=== PATIENT | female | born 1960 | race Caucasian/White ===

== ENCOUNTER 2018-04-10 17:16 | Inpatient (IN) ==
[2018-04-10] MEDS ORDERED: cefTRIAXone 1,000 MG in SODIUM CHLORIDE 0.9% 100 ML IV STA (18:34)
[2018-04-10] MEDS ORDERED: SODIUM CHLORIDE 0.9% 1,000 ML IV STA (18:34)
[2018-04-10] MEDS ORDERED: ACETAMINOPHEN 500 MG TABLET PO STA (18:34)
[2018-04-10 18:45] LABS: Basophils % 0.3 % (0.0-0.8); Eosinophils % 0.7 % (0.00-10.9); Hematocrit 30.2 VOL% (35.7-47.0); Hemoglobin 9.8 GM/DL (12.0-16.0); Immature Granulocytes % 0.7 %; Immature Granulocytes Absolute 0.02 #; Lymphocytes # 0.2 10*3/uL (1.4-4.0); Mean Corpuscular HGB Conc 32.5 GM/DL (32-36); Mean Corpuscular Hemoglobin 32 PG (27-34); Mean Corpuscular Volume 99.3 FL (87-102); Mean Platelet Volume 11.7 FL (9.6-12.0); Monocytes # 0.2 10*3/uL (0.11-0.8); Monocytes % 5.6 % (1.7-12.7); Neutrophils # 2.6 10*3/uL (1.4-7.4); Neutrophils % 86.7 % (38.7-73.9); Platelet Count 61 T/CUMM (130-400); Red Blood Count 3.04 MC/CUMM (3.8-5.5); Red Cell Distribution Width 17.5 % (9.3-17.3)
[2018-04-10 18:52] LABS: INR 1.3; PT Patient Result 13.3 SECS
[2018-04-10 18:58] LABS: Alanine Aminotransferase 15 U/L (13-56); Albumin 1.4 G/DL (3.4-5.0); Alkaline Phosphatase 42 U/L (45-117); Amylase 21 U/L (25-115); Aspartate Amino Transferase 25 U/L (0-37); Bilirubin,Total < 0.39 MG/DL (0.2-1.0); Blood Urea Nitrogen 17 MG/DL (7-18); Calcium 8.7 MG/DL (8.5-10.1); Glucose 96 MG/DL (74-106); Osmolality,Calculated 269.2 MOS/KG (273-304); Potassium 3.6 MMOL/L (3.5-5.1); Sodium 134 MMOL/L (136-145); Total Protein 11.3 G/DL (6.4-8.3)
[2018-04-10 19:29] LABS: Lactic Acid 1.3 MMOL/L (0.4-2.0)
[2018-04-10 19:37] LABS: Apearance,Urine CLOUDY (Clear); Bilirubin,Urine Negative (Negative); Blood, Urine Large mg/dL (Negative); Glucose,Urine (UA) Negative (Negative); Hyaline Casts,Urine 18 /LPF (0-3); Ketones,Urine Negative (Negative); Mucus,Urine Few /LPF (Occasional); Nitrite,Urine Negative (Negative); Protein,Urine >=500 MG/DL; RBC,Urine 6 /HPF (0-4); Squamous Epithelial Cell,Urine Occasional /HPF (0-10); Urine Color Yellow (Yellow); Urine Specific Gravity 1.016 (1.001-1.035); Urine Urobilinogen < 2.0 EU/DL (0.2-1.0); WBC,Urine 3 /HPF (0-6)
[2018-04-10] MEDS ORDERED: ONDANSETRON 4 MG/2 ML VIAL IV STA (20:02)
[2018-04-10] MEDS ORDERED: HYDROmorphone 2 MG/1 ML VIAL IV ONE (20:02)
[2018-04-10 20:04] LABS: Hypochromasia 1+; Platelet Estimate Decreased
[2018-04-10 20:06] LABS: Rouleau 3+
[2018-04-10 20:57] LABS: Sedimentation Rate-Westergren 7 MM/HR (0-30)
[2018-04-10] MEDS ORDERED: ENOXAPARIN 30 MG/0.3 ML SYRINGE SUBCUT SCH (21:30)
[2018-04-10] MEDS: SODIUM CHLORIDE 0.45% 1,000 ML IV SCH (22:38)
[2018-04-10] MEDS: VANCOMYCIN INJ 1,000 MG in SODIUM CHLORIDE 0.9% 250 ML IV SCH (23:10)
[2018-04-11] MEDS: MORPHINE 4 MG/1 ML VIAL IV PRN ×3 (00:57→16:13)
[2018-04-11] MEDS: PIPERACILLIN/TAZOBACTAM 3,375 MG in SODIUM CHLORIDE 0.9% 100 ML IV SCH ×2 (01:03→09:05)
[2018-04-11] MEDS: ACETAMINOPHEN 325 MG TABLET PO PRN ×2 (03:33→06:24)
[2018-04-11 04:47] LABS: Basophils % 0.4 % (0.0-0.8); Eosinophils % 1.1 % (0.00-10.9); Hematocrit 26.1 VOL% (35.7-47.0); Hemoglobin 8.6 GM/DL (12.0-16.0); Immature Granulocytes % 1.1 %; Immature Granulocytes Absolute 0.03 #; Lymphocytes # 0.2 10*3/uL (1.4-4.0); Mean Corpuscular Hemoglobin 32 PG (27-34); Mean Corpuscular Volume 97.8 FL (87-102); Monocytes # 0.2 10*3/uL (0.11-0.8); Monocytes % 7.6 % (1.7-12.7); Neutrophils # 2.1 10*3/uL (1.4-7.4); Neutrophils % 81.8 % (38.7-73.9); Red Blood Count 2.67 MC/CUMM (3.8-5.5); Red Cell Distribution Width 17.6 % (9.3-17.3); White Blood Count 2.6 T/CUMM (4-12)
[2018-04-11 04:50] LABS: Platelet Count 49 T/CUMM (130-400)
[2018-04-11 05:18] LABS: Calcium 7.9 MG/DL (8.5-10.1); Osmolality,Calculated 272.8 MOS/KG (273-304); Potassium 3.6 MMOL/L (3.5-5.1)
[2018-04-11] MEDS: SODIUM CHLORIDE 0.9% 1,000 ML IV SCH ×2 (07:45→12:00)
[2018-04-11] MEDS: PREGABALIN 50 MG CAPSULE PO SCH ×2 (09:02→21:11)
[2018-04-11] MEDS: FAMOTIDINE 20 MG TABLET PO SCH ×2 (09:02→21:11)
[2018-04-11] MEDS: SODIUM CHLORIDE 0.45% 1,000 ML IV SCH ×2 (12:12→16:09)
[2018-04-11] MEDS: MEROPENEM 1,000 MG in SODIUM CHLORIDE 0.9% 100 ML IV SCH ×2 (13:11→21:08)
[2018-04-11] MEDS: FILGRASTIM-SNDZ 300 MCG/0.5 ML SYRINGE SUBCUT SCH (13:12)
[2018-04-11] MEDS: VANCOMYCIN INJ 1,000 MG in SODIUM CHLORIDE 0.9% 250 ML IV SCH (22:25)
[2018-04-12] MEDS: SODIUM CHLORIDE 0.45% 1,000 ML IV SCH ×4 (01:53→20:56)
[2018-04-12] MEDS: MEROPENEM 1,000 MG in SODIUM CHLORIDE 0.9% 100 ML IV SCH ×3 (04:28→20:50)
[2018-04-12 06:32] LABS: Basophils % 0.1 % (0.0-0.8); Eosinophils # 0.2 10*3/uL (0.0-0.87); Immature Granulocytes % 1.6 %; Immature Granulocytes Absolute 0.13 #; Lymphocytes # 0.3 10*3/uL (1.4-4.0); Lymphocytes % 3.3 % (21.3-54.2); Mean Corpuscular HGB Conc 32.1 GM/DL (32-36); Mean Corpuscular Hemoglobin 32 PG (27-34); Mean Corpuscular Volume 99.3 FL (87-102); Mean Platelet Volume 11.3 FL (9.6-12.0); Monocytes # 0.2 10*3/uL (0.11-0.8); Monocytes % 2.1 % (1.7-12.7); Neutrophils # 7.2 10*3/uL (1.4-7.4); Neutrophils % 90.9 % (38.7-73.9); Red Blood Count 2.82 MC/CUMM (3.8-5.5); Red Cell Distribution Width 17.6 % (9.3-17.3); White Blood Count 7.9 T/CUMM (4-12)
[2018-04-12 06:39] LABS: Platelet Count 36 T/CUMM (130-400)
[2018-04-12 06:58] LABS: Band Neutrophils 15 % (0-10); Eosinophils 1 % (0-10); Lymphocytes 3 % (20-55); Segmented Neutrophils 80 % (50-85); Total Cells Counted 100
[2018-04-12 06:59] LABS: Hypochromasia 1+; Platelet Estimate Decreased
[2018-04-12 07:01] LABS: Rouleau 2+
[2018-04-12 07:07] LABS: Alanine Aminotransferase 14 U/L (13-56); Albumin 1.1 G/DL (3.4-5.0); Alkaline Phosphatase 46 U/L (45-117); Aspartate Amino Transferase 20 U/L (0-37); Bilirubin,Total < 0.39 MG/DL (0.2-1.0); Blood Urea Nitrogen 12 MG/DL (7-18); Calcium 7.9 MG/DL (8.5-10.1); Glucose 70 MG/DL (74-106); Potassium 3.1 MMOL/L (3.5-5.1); Sodium 136 MMOL/L (136-145); Total Protein 8.7 G/DL (6.4-8.3)
[2018-04-12] MEDS: FAMOTIDINE 20 MG TABLET PO SCH ×2 (08:03→20:48)
[2018-04-12] MEDS: FILGRASTIM-SNDZ 300 MCG/0.5 ML SYRINGE SUBCUT SCH (08:04)
[2018-04-12] MEDS: PREGABALIN 50 MG CAPSULE PO SCH ×2 (08:04→20:47)
[2018-04-12] MEDS: ONDANSETRON 4 MG/2 ML VIAL IV PRN (11:46)
[2018-04-12] MEDS: GRANISETRON 1 MG/1 ML VIAL IV SCH (13:04)
[2018-04-12] MEDS ORDERED: POTASSIUM CHLORIDE 20 MEQ TABLET PO PRN (14:44)
[2018-04-12] MEDS: ACETAMINOPHEN 325 MG TABLET PO PRN ×3 (16:57→20:48)
[2018-04-12] MEDS: VANCOMYCIN INJ 1,000 MG in SODIUM CHLORIDE 0.9% 250 ML IV SCH (21:56)
[2018-04-13] MEDS: ACETAMINOPHEN 325 MG TABLET PO PRN (03:35)
[2018-04-13] MEDS: MEROPENEM 1,000 MG in SODIUM CHLORIDE 0.9% 100 ML IV SCH ×3 (03:39→21:34)
[2018-04-13 05:03] LABS: Basophils % 0.1 % (0.0-0.8); Eosinophils # 0.1 10*3/uL (0.0-0.87); Eosinophils % 1.2 % (0.00-10.9); Hematocrit 24.6 VOL% (35.7-47.0); Hemoglobin 8.1 GM/DL (12.0-16.0); Immature Granulocytes % 7.1 %; Immature Granulocytes Absolute 0.63 #; Lymphocytes # 0.3 10*3/uL (1.4-4.0); Lymphocytes % 3.6 % (21.3-54.2); Mean Corpuscular HGB Conc 32.9 GM/DL (32-36); Mean Corpuscular Hemoglobin 32 PG (27-34); Mean Corpuscular Volume 96.5 FL (87-102); Mean Platelet Volume 12.9 FL (9.6-12.0); Monocytes # 0.2 10*3/uL (0.11-0.8); Monocytes % 1.8 % (1.7-12.7); Neutrophils # 7.7 10*3/uL (1.4-7.4); Neutrophils % 86.2 % (38.7-73.9); Red Blood Count 2.55 MC/CUMM (3.8-5.5); Red Cell Distribution Width 17.4 % (9.3-17.3); White Blood Count 8.9 T/CUMM (4-12)
[2018-04-13 05:35] LABS: Albumin 1.1 G/DL (3.4-5.0); Bilirubin,Total 0.6 MG/DL (0.2-1.0); Calcium 7.8 MG/DL (8.5-10.1); Osmolality,Calculated 270.8 MOS/KG (273-304); Potassium 3.2 MMOL/L (3.5-5.1); Total Protein 8.7 G/DL (6.4-8.3)
[2018-04-13 05:57] LABS: Platelet Count 32 T/CUMM (130-400)
[2018-04-13 07:45] LABS: Band Neutrophils 3 % (0-10); Hypochromasia 1+; Lymphocytes 3 % (20-55); Macrocytosis Slight; Platelet Estimate Decreased; Segmented Neutrophils 92 % (50-85); Total Cells Counted 100
[2018-04-13 07:47] LABS: Rouleau 1+
[2018-04-13] MEDS: GRANISETRON 1 MG/1 ML VIAL IV SCH (09:09)
[2018-04-13] MEDS: PREGABALIN 50 MG CAPSULE PO SCH ×2 (09:09→21:34)
[2018-04-13] MEDS: FAMOTIDINE 20 MG TABLET PO SCH ×2 (09:09→21:33)
[2018-04-13] MEDS: FILGRASTIM-SNDZ 300 MCG/0.5 ML SYRINGE SUBCUT SCH (09:09)
[2018-04-13] MEDS: SODIUM CHLORIDE 0.45% 1,000 ML IV SCH ×2 (09:12→21:44)
[2018-04-13] MEDS: POTASSIUM CHLORIDE RIDER 10 MEQ in PREMIX 1 EACH IV PRN ×4 (10:14→16:06)
[2018-04-13] MEDS ORDERED: SODIUM CHLORIDE 0.9% 1,000 ML IV PRN (10:57)
[2018-04-13] MEDS: VANCOMYCIN INJ 1,000 MG in SODIUM CHLORIDE 0.9% 250 ML IV SCH (22:35)
[2018-04-14] MEDS: MEROPENEM 1,000 MG in SODIUM CHLORIDE 0.9% 100 ML IV SCH ×3 (03:25→21:15)
[2018-04-14 04:56] LABS: Basophils % 0.2 % (0.0-0.8); Eosinophils # 0.1 10*3/uL (0.0-0.87); Eosinophils % 1.3 % (0.00-10.9); Hemoglobin 8.7 GM/DL (12.0-16.0); Immature Granulocytes % 2.6 %; Immature Granulocytes Absolute 0.23 #; Lymphocytes # 0.7 10*3/uL (1.4-4.0); Lymphocytes % 7.9 % (21.3-54.2); Mean Corpuscular HGB Conc 33.5 GM/DL (32-36); Mean Corpuscular Hemoglobin 33 PG (27-34); Monocytes # 0.3 10*3/uL (0.11-0.8); Monocytes % 3.5 % (1.7-12.7); NRBC # 0.03 10*3/uL; Neutrophils # 7.4 10*3/uL (1.4-7.4); Neutrophils % 84.5 % (38.7-73.9); Red Blood Count 2.68 MC/CUMM (3.8-5.5); White Blood Count 8.8 T/CUMM (4-12)
[2018-04-14 05:01] LABS: Platelet Count 23 T/CUMM (130-400)
[2018-04-14 05:20] LABS: Band Neutrophils 10 % (0-10); Eosinophils 1 % (0-10); Hypochromasia 1+; Lymphocytes 2 % (20-55); Platelet Estimate Decreased; Segmented Neutrophils 86 % (50-85); Total Cells Counted 100
[2018-04-14 05:21] LABS: Macrocytosis Slight; Rouleau 1+
[2018-04-14 05:34] LABS: Albumin 1.1 G/DL (3.4-5.0); Calcium 7.5 MG/DL (8.5-10.1); Osmolality,Calculated 266.1 MOS/KG (273-304); Potassium 3.8 MMOL/L (3.5-5.1); Total Protein 8.7 G/DL (6.4-8.3)
[2018-04-14] MEDS: SODIUM CHLORIDE 0.45% 1,000 ML IV SCH (09:40)
[2018-04-14] MEDS: POTASSIUM CHLORIDE 20 MEQ TABLET PO SCH ×2 (09:41→21:07)
[2018-04-14] MEDS: FAMOTIDINE 20 MG TABLET PO SCH ×2 (09:41→21:07)
[2018-04-14] MEDS: GRANISETRON 1 MG/1 ML VIAL IV SCH (09:43)
[2018-04-14] MEDS ORDERED: MAGNESIUM SULF RIDER 4 GM in PREMIX 1 EACH IV PRN (09:46)
[2018-04-14] MEDS: FILGRASTIM-SNDZ 300 MCG/0.5 ML SYRINGE SUBCUT SCH (09:49)
[2018-04-14] MEDS: MAGNESIUM SULF RIDER 2 GM in PREMIX 1 EACH IV PRN ×2 (10:29→15:08)
[2018-04-14] MEDS: ACETAMINOPHEN 325 MG TABLET PO PRN (16:46)
[2018-04-14 17:48] LABS: Apearance,Urine Slightly Hazy (Clear); Bacteria,Urine Occasional /HPF (Few); Bilirubin,Urine Negative (Negative); Blood, Urine Large mg/dL (Negative); Glucose,Urine (UA) Negative (Negative); Hyaline Casts,Urine 1 /LPF (0-3); Ketones,Urine Negative (Negative); Mucus,Urine Occasional /LPF (Occasional); Nitrite,Urine Negative (Negative); Protein,Urine 100 MG/DL; RBC,Urine 31 /HPF (0-4); Squamous Epithelial Cell,Urine Occasional /HPF (0-10); Urine Color Yellow (Yellow); Urine Specific Gravity 1.009 (1.001-1.035); Urine Urobilinogen < 2.0 EU/DL (0.2-1.0); WBC,Urine 3 /HPF (0-6)
[2018-04-15] MEDS: MEROPENEM 1,000 MG in SODIUM CHLORIDE 0.9% 100 ML IV SCH ×3 (03:38→23:37)
[2018-04-15 06:14] LABS: Basophils % 0.3 % (0.0-0.8); Eosinophils # 0.1 10*3/uL (0.0-0.87); Eosinophils % 1.2 % (0.00-10.9); Hematocrit 22.4 VOL% (35.7-47.0); Immature Granulocytes % 4.3 %; Immature Granulocytes Absolute 0.33 #; Lymphocytes # 0.4 10*3/uL (1.4-4.0); Lymphocytes % 5.1 % (21.3-54.2); Mean Corpuscular Hemoglobin 32 PG (27-34); Mean Corpuscular Volume 95.7 FL (87-102); Mean Platelet Volume 14.8 FL (9.6-12.0); Monocytes # 0.3 10*3/uL (0.11-0.8); Monocytes % 3.7 % (1.7-12.7); NRBC # 0.03 10*3/uL; Neutrophils # 6.5 10*3/uL (1.4-7.4); Neutrophils % 85.4 % (38.7-73.9); Red Blood Count 2.34 MC/CUMM (3.8-5.5); White Blood Count 7.6 T/CUMM (4-12)
[2018-04-15 06:20] LABS: Platelet Count 17 T/CUMM (130-400)
[2018-04-15 06:21] LABS: Hemoglobin 7.4 GM/DL (12.0-16.0)
[2018-04-15 06:40] LABS: Bilirubin,Total 0.5 MG/DL (0.2-1.0); Calcium 7.4 MG/DL (8.5-10.1); Potassium 3.7 MMOL/L (3.5-5.1); Total Protein 8.4 G/DL (6.4-8.3)
[2018-04-15 07:46] LABS: Band Neutrophils 4 % (0-10); Hypochromasia 1+; Lymphocytes 3 % (20-55); Platelet Estimate Decreased; Segmented Neutrophils 88 % (50-85); Total Cells Counted 100
[2018-04-15 07:47] LABS: Macrocytosis Slight; Rouleau Slight
[2018-04-15] MEDS ORDERED: SODIUM CHLORIDE 0.9% 1,000 ML IV PRN ×2 (08:24→08:27)
[2018-04-15] MEDS: FILGRASTIM-SNDZ 300 MCG/0.5 ML SYRINGE SUBCUT SCH (08:43)
[2018-04-15] MEDS: FAMOTIDINE 20 MG TABLET PO SCH ×2 (08:43→20:34)
[2018-04-15] MEDS: POTASSIUM CHLORIDE 20 MEQ TABLET PO SCH ×2 (08:43→20:34)
[2018-04-15] MEDS: GRANISETRON 1 MG/1 ML VIAL IV SCH (08:43)
[2018-04-15] MEDS: ACETAMINOPHEN 325 MG TABLET PO PRN ×2 (08:47→17:32)
[2018-04-15] MEDS: ONDANSETRON 4 MG/2 ML VIAL IV PRN (16:41)
[2018-04-15] MEDS: VANCOMYCIN INJ 1,000 MG in SODIUM CHLORIDE 0.9% 250 ML IV SCH (17:32)
[2018-04-16] MEDS: ACETAMINOPHEN 325 MG TABLET PO PRN ×2 (01:35→09:34)
[2018-04-16] MEDS: VANCOMYCIN INJ 1,000 MG in SODIUM CHLORIDE 0.9% 250 ML IV SCH ×2 (05:09→18:30)
[2018-04-16] MEDS: MEROPENEM 1,000 MG in SODIUM CHLORIDE 0.9% 100 ML IV SCH ×3 (06:12→22:33)
[2018-04-16] MEDS ORDERED: HEPARIN LOCK FLUSH 500 UNIT/5 ML SYRINGE IV ONE (07:07)
[2018-04-16 07:35] LABS: Basophils % 0.2 % (0.0-0.8); Eosinophils # 0.1 10*3/uL (0.0-0.87); Eosinophils % 0.8 % (0.00-10.9); Hematocrit 29.1 VOL% (35.7-47.0); Hemoglobin 9.6 GM/DL (12.0-16.0); Immature Granulocytes Absolute 0.69 #; Lymphocytes # 0.2 10*3/uL (1.4-4.0); Lymphocytes % 2.5 % (21.3-54.2); Mean Corpuscular Hemoglobin 32 PG (27-34); Mean Corpuscular Volume 97.7 FL (87-102); Monocytes # 0.2 10*3/uL (0.11-0.8); Monocytes % 2.1 % (1.7-12.7); Neutrophils # 7.5 10*3/uL (1.4-7.4); Neutrophils % 86.4 % (38.7-73.9); Red Blood Count 2.98 MC/CUMM (3.8-5.5); Red Cell Distribution Width 17.2 % (9.3-17.3); White Blood Count 8.6 T/CUMM (4-12)
[2018-04-16 07:42] LABS: Platelet Count 30 T/CUMM (130-400)
[2018-04-16 07:55] LABS: Band Neutrophils 8 % (0-10); Lymphocytes 1 % (20-55); Nucleated Red Blood Cells 1 (0-5); Segmented Neutrophils 88 % (50-85); Total Cells Counted 100
[2018-04-16 07:57] LABS: Hypochromasia 1+; Macrocytosis Slight
[2018-04-16 07:58] LABS: Platelet Estimate Decreased; Rouleau Slight
[2018-04-16] MEDS: MORPHINE 4 MG/1 ML VIAL IV PRN ×2 (08:01→13:02)
[2018-04-16 08:02] LABS: Albumin 1.1 G/DL (3.4-5.0); Bilirubin,Total 0.5 MG/DL (0.2-1.0); Calcium 7.3 MG/DL (8.5-10.1); Potassium 3.9 MMOL/L (3.5-5.1); Total Protein 8.2 G/DL (6.4-8.3)
[2018-04-16] MEDS: DEXT 5% NACL 0.45% KCL 20 MEQ 20 MEQ/1,000 ML BAG IV SCH (09:32)
[2018-04-16] MEDS: GRANISETRON 1 MG/1 ML VIAL IV SCH (09:32)
[2018-04-16] MEDS: FILGRASTIM-SNDZ 300 MCG/0.5 ML SYRINGE SUBCUT SCH (09:36)
[2018-04-16] MEDS ORDERED: METOCLOPRAMIDE 10 MG/2 ML VIAL IV SCH (12:00)
[2018-04-16] MEDS: FAMOTIDINE 20 MG TABLET PO SCH (13:08)
[2018-04-16] MEDS: POTASSIUM CHLORIDE 20 MEQ TABLET PO SCH ×2 (13:08→20:06)
[2018-04-16] MEDS ORDERED: DICYCLOMINE 20 MG/2 ML AMP IM PRN (14:06)
[2018-04-16] MEDS ORDERED: SODIUM CHLORIDE 0.9% 1,000 ML IV PRN ×2 (14:12→14:14)
[2018-04-16] MEDS: MEPERIDINE 25 MG/1 ML VIAL IV PRN ×2 (14:46→20:03)
[2018-04-16] MEDS: DICYCLOMINE 20 MG TABLET PO PRN (14:46)
[2018-04-16] MEDS: PANTOPRAZOLE 40 MG VIAL IV SCH (21:20)
[2018-04-17] MEDS: DEXT 5% NACL 0.45% KCL 20 MEQ 20 MEQ/1,000 ML BAG IV SCH ×2 (03:37→23:58)
[2018-04-17 05:02] LABS: Basophils # 0.1 10*3/uL (0.0-0.2); Basophils % 0.5 % (0.0-0.8); Eosinophils % 0.2 % (0.00-10.9); Hematocrit 30.7 VOL% (35.7-47.0); Hemoglobin 10.4 GM/DL (12.0-16.0); Immature Granulocytes % 2.7 %; Lymphocytes # 0.6 10*3/uL (1.4-4.0); Lymphocytes % 5.6 % (21.3-54.2); Mean Corpuscular HGB Conc 33.9 GM/DL (32-36); Mean Corpuscular Hemoglobin 31 PG (27-34); Mean Corpuscular Volume 92.2 FL (87-102); Mean Platelet Volume 13.5 FL (9.6-12.0); Monocytes # 0.2 10*3/uL (0.11-0.8); Monocytes % 1.6 % (1.7-12.7); Neutrophils % 89.4 % (38.7-73.9); Red Blood Count 3.33 MC/CUMM (3.8-5.5); Red Cell Distribution Width 17.4 % (9.3-17.3)
[2018-04-17] MEDS: VANCOMYCIN INJ 1,000 MG in SODIUM CHLORIDE 0.9% 250 ML IV SCH ×2 (05:04→17:14)
[2018-04-17 05:06] LABS: Platelet Count 68 T/CUMM (130-400); White Blood Count 11.2 T/CUMM (4-12)
[2018-04-17] MEDS: MEPERIDINE 25 MG/1 ML VIAL IV PRN (05:11)
[2018-04-17 05:26] LABS: Albumin 1.2 G/DL (3.4-5.0); Bilirubin,Total 1.1 MG/DL (0.2-1.0); Calcium 7.9 MG/DL (8.5-10.1); Osmolality,Calculated 263.4 MOS/KG (273-304); Potassium 4.3 MMOL/L (3.5-5.1); Total Protein 9.1 G/DL (6.4-8.3)
[2018-04-17 05:31] LABS: Band Neutrophils 8 % (0-10); Hypochromasia 1+; Lymphocytes 1 % (20-55); Macrocytosis Slight; Platelet Estimate Decreased; Segmented Neutrophils 89 % (50-85); Total Cells Counted 100
[2018-04-17 05:32] LABS: Rouleau Slight
[2018-04-17] MEDS: MEROPENEM 1,000 MG in SODIUM CHLORIDE 0.9% 100 ML IV SCH ×3 (06:23→22:03)
[2018-04-17] MEDS: GRANISETRON 1 MG/1 ML VIAL IV SCH ×2 (07:37→08:59)
[2018-04-17 09:25] LABS: Cancer Antigen 19-9 6.7 U/ML (0-37); Carcinoembryonic Antigen < 0.5 NG/ML (0.0-5.0)
[2018-04-17] MEDS: POTASSIUM CHLORIDE 20 MEQ TABLET PO SCH ×2 (09:33→20:47)
[2018-04-17] MEDS ORDERED: fentaNYL 100 MCG/2 ML VIAL IV ONE (09:48)
[2018-04-17] MEDS ORDERED: DIAZEPAM 5 MG TABLET PO ONE (09:48)
[2018-04-17] MEDS ORDERED: ONDANSETRON 4 MG/2 ML VIAL IV ONE (09:48)
[2018-04-17] MEDS ORDERED: MIDAZOLAM 2 MG/2 ML VIAL IV ONE (09:48)
[2018-04-17] MEDS ORDERED: SODIUM CHLORIDE 0.45% 1,000 ML IV SCH (10:00)
[2018-04-17] MEDS ORDERED: fentaNYL 100 MCG/2 ML VIAL ONE (10:21)
[2018-04-17] MEDS ORDERED: MIDAZOLAM 2 MG/2 ML VIAL ONE (10:21)
[2018-04-17] MEDS: PANTOPRAZOLE 40 MG VIAL IV SCH ×2 (10:30→20:47)
[2018-04-17] MEDS ORDERED: ONDANSETRON 4 MG/2 ML VIAL ONE (10:59)
[2018-04-17] MEDS: FILGRASTIM-SNDZ 300 MCG/0.5 ML SYRINGE SUBCUT SCH (13:38)
[2018-04-17] MEDS: ONDANSETRON 4 MG/2 ML VIAL IV PRN (16:12)
[2018-04-18] MEDS: VANCOMYCIN INJ 1,000 MG in SODIUM CHLORIDE 0.9% 250 ML IV SCH (04:38)
[2018-04-18 06:01] LABS: Basophils % 0.3 % (0.0-0.8); Eosinophils % 0.1 % (0.00-10.9); Hemoglobin 9.7 GM/DL (12.0-16.0); Immature Granulocytes % 3.2 %; Immature Granulocytes Absolute 0.38 #; Lymphocytes # 0.3 10*3/uL (1.4-4.0); Lymphocytes % 2.7 % (21.3-54.2); Mean Corpuscular HGB Conc 33.4 GM/DL (32-36); Mean Corpuscular Hemoglobin 31 PG (27-34); Mean Corpuscular Volume 91.8 FL (87-102); Mean Platelet Volume 13.9 FL (9.6-12.0); Monocytes # 0.2 10*3/uL (0.11-0.8); Monocytes % 1.3 % (1.7-12.7); NRBC # 0.02 10*3/uL; Neutrophils # 10.9 10*3/uL (1.4-7.4); Neutrophils % 92.4 % (38.7-73.9); Red Blood Count 3.16 MC/CUMM (3.8-5.5); Red Cell Distribution Width 17.5 % (9.3-17.3); White Blood Count 11.8 T/CUMM (4-12)
[2018-04-18 06:06] LABS: Platelet Count 28 T/CUMM (130-400)
[2018-04-18 06:11] LABS: Albumin 0.9 G/DL (3.4-5.0); Bilirubin,Total 1.2 MG/DL (0.2-1.0); Calcium 7.2 MG/DL (8.5-10.1); Osmolality,Calculated 265.4 MOS/KG (273-304); Potassium 4.1 MMOL/L (3.5-5.1); Total Protein 8.1 G/DL (6.4-8.3)
[2018-04-18] MEDS: MEROPENEM 1,000 MG in SODIUM CHLORIDE 0.9% 100 ML IV SCH ×3 (06:45→23:55)
[2018-04-18 06:46] LABS: Band Neutrophils 8 % (0-10); Hypochromasia Slight; Lymphocytes 3 % (20-55); Macrocytosis Slight; Platelet Estimate Decreased; Rouleau Slight; Segmented Neutrophils 87 % (50-85); Total Cells Counted 100
[2018-04-18] MEDS ORDERED: ONDANSETRON 4 MG/2 ML VIAL IV ONE (08:41)
[2018-04-18] MEDS: POTASSIUM CHLORIDE 20 MEQ TABLET PO SCH ×2 (09:05→20:59)
[2018-04-18] MEDS: PANTOPRAZOLE 40 MG VIAL IV SCH ×2 (09:11→20:47)
[2018-04-18] MEDS: GRANISETRON 1 MG/1 ML VIAL IV SCH (09:13)
[2018-04-18] MEDS: FILGRASTIM-SNDZ 300 MCG/0.5 ML SYRINGE SUBCUT SCH (09:13)
[2018-04-18] MEDS ORDERED: SODIUM CHLORIDE 0.9% 1,000 ML IV PRN (09:23)
[2018-04-18] MEDS: MEPERIDINE 25 MG/1 ML VIAL IV PRN (11:21)
[2018-04-18] MEDS: MEPERIDINE 50 MG/1 ML VIAL IV PRN ×2 (14:23→17:33)
[2018-04-18 19:01] LABS: Basophils % 0.3 % (0.0-0.8); Eosinophils % 0.1 % (0.00-10.9); Hematocrit 26.1 VOL% (35.7-47.0); Hemoglobin 8.7 GM/DL (12.0-16.0); Immature Granulocytes % 1.6 %; Immature Granulocytes Absolute 0.11 #; Lymphocytes # 0.2 10*3/uL (1.4-4.0); Lymphocytes % 3.1 % (21.3-54.2); Mean Corpuscular HGB Conc 33.3 GM/DL (32-36); Mean Corpuscular Hemoglobin 31 PG (27-34); Mean Corpuscular Volume 93.9 FL (87-102); Mean Platelet Volume 11.6 FL (9.6-12.0); Monocytes # 0.1 10*3/uL (0.11-0.8); Monocytes % 1.6 % (1.7-12.7); NRBC # 0.02 10*3/uL; Neutrophils # 6.3 10*3/uL (1.4-7.4); Neutrophils % 93.3 % (38.7-73.9); Red Blood Count 2.78 MC/CUMM (3.8-5.5); Red Cell Distribution Width 17.6 % (9.3-17.3); White Blood Count 6.7 T/CUMM (4-12)
[2018-04-18 19:05] LABS: Platelet Count 39 T/CUMM (130-400)
[2018-04-18 19:25] LABS: Calcium 6.8 MG/DL (8.5-10.1); Osmolality,Calculated 269.1 MOS/KG (273-304)
[2018-04-18] MEDS ORDERED: METOPROLOL TARTRATE 5 MG/5 ML VIAL IV ONE (20:04)
[2018-04-18] MEDS ORDERED: MAGNESIUM SULF RIDER 2 GM in PREMIX 1 EACH IV ONE (20:04)
[2018-04-18 20:54] LABS: Band Neutrophils 6 % (0-10); Eosinophils 1 % (0-10); Lymphocytes 5 % (20-55); Segmented Neutrophils 88 % (50-85); Total Cells Counted 100
[2018-04-18 20:55] LABS: Hypochromasia Slight; Platelet Estimate Decreased
[2018-04-18] MEDS: DEXT 5% NACL 0.45% KCL 20 MEQ 20 MEQ/1,000 ML BAG IV SCH (20:56)
[2018-04-18] MEDS: SIMETHICONE CHEW 80 MG TABLET PO PRN (20:57)
[2018-04-18] MEDS: DICYCLOMINE 20 MG TABLET PO PRN (20:59)
[2018-04-18] MEDS: METOPROLOL TARTRATE 5 MG/5 ML VIAL IV SCH (23:55)
[2018-04-19] MEDS: MEPERIDINE 50 MG/1 ML VIAL IV PRN ×4 (04:53→22:13)
[2018-04-19 05:17] LABS: Basophils % 0.4 % (0.0-0.8); Eosinophils % 0.8 % (0.00-10.9); Hematocrit 27.7 VOL% (35.7-47.0); Hemoglobin 9.1 GM/DL (12.0-16.0); Immature Granulocytes % 2.1 %; Immature Granulocytes Absolute 0.11 #; Lymphocytes # 0.2 10*3/uL (1.4-4.0); Lymphocytes % 4.4 % (21.3-54.2); Mean Corpuscular HGB Conc 32.9 GM/DL (32-36); Mean Corpuscular Hemoglobin 32 PG (27-34); Mean Corpuscular Volume 96.9 FL (87-102); Mean Platelet Volume 11.8 FL (9.6-12.0); Monocytes # 0.1 10*3/uL (0.11-0.8); Monocytes % 2.1 % (1.7-12.7); Neutrophils # 4.7 10*3/uL (1.4-7.4); Neutrophils % 90.2 % (38.7-73.9); Red Blood Count 2.86 MC/CUMM (3.8-5.5); Red Cell Distribution Width 17.7 % (9.3-17.3); White Blood Count 5.3 T/CUMM (4-12)
[2018-04-19 05:25] LABS: Platelet Count 26 T/CUMM (130-400)
[2018-04-19 05:34] LABS: Albumin 1.1 G/DL (3.4-5.0); Calcium 7.3 MG/DL (8.5-10.1); Osmolality,Calculated 268.2 MOS/KG (273-304); Potassium 4.2 MMOL/L (3.5-5.1); Total Protein 8.4 G/DL (6.4-8.3)
[2018-04-19 05:51] LABS: Band Neutrophils 1 % (0-10); Lymphocytes 9 % (20-55); Macrocytosis 2+; Nucleated Red Blood Cells 1 (0-5); Platelet Estimate Decreased; Segmented Neutrophils 86 % (50-85); Total Cells Counted 100
[2018-04-19] MEDS: METOPROLOL TARTRATE 5 MG/5 ML VIAL IV SCH ×3 (05:56→18:53)
[2018-04-19] MEDS: MEROPENEM 1,000 MG in SODIUM CHLORIDE 0.9% 100 ML IV SCH ×3 (06:45→22:22)
[2018-04-19] MEDS: DEXT 5% NACL 0.45% KCL 20 MEQ 20 MEQ/1,000 ML BAG IV SCH ×3 (07:06→13:23)
[2018-04-19] MEDS: PANTOPRAZOLE 40 MG VIAL IV SCH ×2 (08:56→22:19)
[2018-04-19] MEDS: POTASSIUM CHLORIDE 20 MEQ TABLET PO SCH ×2 (08:56→22:12)
[2018-04-19] MEDS: GRANISETRON 1 MG/1 ML VIAL IV SCH (08:56)
[2018-04-20] MEDS: METOPROLOL TARTRATE 5 MG/5 ML VIAL IV SCH ×6 (02:51→23:42)
[2018-04-20] MEDS: DEXT 5% NACL 0.45% KCL 20 MEQ 20 MEQ/1,000 ML BAG IV SCH ×2 (03:39→18:27)
[2018-04-20] MEDS: MEPERIDINE 50 MG/1 ML VIAL IV PRN (04:15)
[2018-04-20] MEDS: MEROPENEM 1,000 MG in SODIUM CHLORIDE 0.9% 100 ML IV SCH ×3 (06:13→23:45)
[2018-04-20 06:18] LABS: Albumin 3.6 G/DL (3.4-5.0); Bilirubin,Total 0.4 MG/DL (0.2-1.0); Calcium 9.2 MG/DL (8.5-10.1); Osmolality,Calculated 279.8 MOS/KG (273-304); Potassium 4.2 MMOL/L (3.5-5.1); Total Protein 6.9 G/DL (6.4-8.3)
[2018-04-20 09:04] LABS: Basophils % 0.5 % (0.0-0.8); Eosinophils % 0.9 % (0.00-10.9); Hematocrit 24.8 VOL% (35.7-47.0); Hemoglobin 8.1 GM/DL (12.0-16.0); Immature Granulocytes % 1.4 %; Immature Granulocytes Absolute 0.03 #; Lymphocytes # 0.2 10*3/uL (1.4-4.0); Lymphocytes % 9.4 % (21.3-54.2); Mean Corpuscular HGB Conc 32.7 GM/DL (32-36); Mean Corpuscular Hemoglobin 31 PG (27-34); Mean Corpuscular Volume 94.7 FL (87-102); Mean Platelet Volume 12.6 FL (9.6-12.0); Monocytes # 0.1 10*3/uL (0.11-0.8); Monocytes % 5.2 % (1.7-12.7); Neutrophils # 1.8 10*3/uL (1.4-7.4); Neutrophils % 82.6 % (38.7-73.9); Red Blood Count 2.62 MC/CUMM (3.8-5.5); Red Cell Distribution Width 17.9 % (9.3-17.3); White Blood Count 2.1 T/CUMM (4-12)
[2018-04-20 09:08] LABS: Platelet Count 9 T/CUMM (130-400)
[2018-04-20] MEDS: POTASSIUM CHLORIDE 20 MEQ TABLET PO SCH ×2 (09:32→20:37)
[2018-04-20] MEDS: GRANISETRON 1 MG/1 ML VIAL IV SCH (09:32)
[2018-04-20] MEDS: PANTOPRAZOLE 40 MG VIAL IV SCH ×2 (09:35→20:37)
[2018-04-20 11:33] LABS: Band Neutrophils 4 % (0-10); Hypochromasia Slight; Lymphocytes 2 % (20-55); Microcytosis Slight; Polychromasia Slight; Segmented Neutrophils 92 % (50-85); Total Cells Counted 100
[2018-04-20 11:34] LABS: Platelet Estimate Decreased
[2018-04-20] MEDS: ACETAMINOPHEN 325 MG TABLET PO PRN (11:52)
[2018-04-20] MEDS: FILGRASTIM-SNDZ 300 MCG/0.5 ML SYRINGE SUBCUT SCH (11:53)
[2018-04-20] MEDS ORDERED: SODIUM CHLORIDE 0.9% 1,000 ML IV PRN (12:12)
[2018-04-20] MEDS: DOCUSATE/SENNA 50-8.6 MG TABLET PO SCH ×2 (14:00→20:37)
[2018-04-20] MEDS: MEPERIDINE 25 MG/1 ML VIAL IV PRN ×3 (14:05→23:51)
[2018-04-20] MEDS: ONDANSETRON 4 MG/2 ML VIAL IV PRN (19:29)
[2018-04-21] MEDS: ONDANSETRON 4 MG/2 ML VIAL IV PRN ×2 (02:43→20:48)
[2018-04-21] MEDS: METOPROLOL TARTRATE 5 MG/5 ML VIAL IV SCH ×3 (06:41→18:17)
[2018-04-21] MEDS: MEROPENEM 1,000 MG in SODIUM CHLORIDE 0.9% 100 ML IV SCH ×3 (06:48→23:09)
[2018-04-21 08:24] LABS: Basophils % 0.4 % (0.0-0.8); Eosinophils % 0.4 % (0.00-10.9); Hematocrit 26.5 VOL% (35.7-47.0); Hemoglobin 8.7 GM/DL (12.0-16.0); Immature Granulocytes % 2.3 %; Immature Granulocytes Absolute 0.12 #; Lymphocytes # 0.3 10*3/uL (1.4-4.0); Lymphocytes % 5.5 % (21.3-54.2); Mean Corpuscular HGB Conc 32.8 GM/DL (32-36); Mean Corpuscular Hemoglobin 30 PG (27-34); Mean Corpuscular Volume 91.1 FL (87-102); Mean Platelet Volume 10.9 FL (9.6-12.0); Monocytes # 0.1 10*3/uL (0.11-0.8); Monocytes % 2.3 % (1.7-12.7); Neutrophils # 4.6 10*3/uL (1.4-7.4); Neutrophils % 89.1 % (38.7-73.9); Red Blood Count 2.91 MC/CUMM (3.8-5.5); Red Cell Distribution Width 19.2 % (9.3-17.3); White Blood Count 5.1 T/CUMM (4-12)
[2018-04-21 08:39] LABS: Platelet Count 17 T/CUMM (130-400)
[2018-04-21 09:03] LABS: Band Neutrophils 5 % (0-10); Lymphocytes 2 % (20-55); Segmented Neutrophils 88 % (50-85); Total Cells Counted 100
[2018-04-21 09:04] LABS: Hypochromasia 1+; Microcytosis Slight; Platelet Estimate Decreased
[2018-04-21 09:06] LABS: Bilirubin,Total 0.9 MG/DL (0.2-1.0); Calcium 6.8 MG/DL (8.5-10.1); Osmolality,Calculated 269.4 MOS/KG (273-304); Potassium 5.9 MMOL/L (3.5-5.1); Total Protein 7.9 G/DL (6.4-8.3)
[2018-04-21] MEDS: DOCUSATE/SENNA 50-8.6 MG TABLET PO SCH ×2 (09:43→20:33)
[2018-04-21] MEDS: GRANISETRON 1 MG/1 ML VIAL IV SCH (09:44)
[2018-04-21] MEDS: POTASSIUM CHLORIDE 20 MEQ TABLET PO SCH ×2 (09:44→20:33)
[2018-04-21] MEDS: FILGRASTIM-SNDZ 300 MCG/0.5 ML SYRINGE SUBCUT SCH ×2 (09:47→10:11)
[2018-04-21] MEDS: PANTOPRAZOLE 40 MG VIAL IV SCH ×2 (09:47→20:34)
[2018-04-21] MEDS: MEPERIDINE 25 MG/1 ML VIAL IV PRN ×2 (17:09→20:49)
[2018-04-21] MEDS: DEXTROSE 5% NACL 0.45% 1,000 ML IV SCH ×3 (19:16→23:08)
[2018-04-22] MEDS: METOPROLOL TARTRATE 5 MG/5 ML VIAL IV SCH ×5 (00:14→23:42)
[2018-04-22] MEDS: DEXTROSE 5% NACL 0.45% 1,000 ML IV SCH ×4 (05:08→23:18)
[2018-04-22] MEDS: MEROPENEM 1,000 MG in SODIUM CHLORIDE 0.9% 100 ML IV SCH (06:29)
[2018-04-22 06:43] LABS: Basophils % 0.2 % (0.0-0.8); Eosinophils % 0.9 % (0.00-10.9); Hematocrit 27.1 VOL% (35.7-47.0); Hemoglobin 8.5 GM/DL (12.0-16.0); Immature Granulocytes % 1.6 %; Immature Granulocytes Absolute 0.07 #; Lymphocytes # 0.2 10*3/uL (1.4-4.0); Lymphocytes % 3.8 % (21.3-54.2); Mean Corpuscular HGB Conc 31.4 GM/DL (32-36); Mean Corpuscular Hemoglobin 29 PG (27-34); Mean Corpuscular Volume 93.8 FL (87-102); Monocytes # 0.1 10*3/uL (0.11-0.8); Monocytes % 1.6 % (1.7-12.7); Neutrophils # 3.9 10*3/uL (1.4-7.4); Neutrophils % 91.9 % (38.7-73.9); Red Blood Count 2.89 MC/CUMM (3.8-5.5); Red Cell Distribution Width 19.2 % (9.3-17.3); White Blood Count 4.3 T/CUMM (4-12)
[2018-04-22 06:47] LABS: Platelet Count 6 T/CUMM (130-400)
[2018-04-22 07:13] LABS: Albumin 0.9 G/DL (3.4-5.0); Bilirubin,Total 0.9 MG/DL (0.2-1.0); Calcium 6.6 MG/DL (8.5-10.1); Osmolality,Calculated 271.4 MOS/KG (273-304); Potassium 4.8 MMOL/L (3.5-5.1); Total Protein 7.2 G/DL (6.4-8.3)
[2018-04-22 07:28] LABS: Band Neutrophils 11 % (0-10); Eosinophils 1 % (0-10); Hypochromasia 1+; Lymphocytes 1 % (20-55); Platelet Estimate Decreased; Segmented Neutrophils 86 % (50-85); Total Cells Counted 100
[2018-04-22 07:29] LABS: Microcytosis Slight
[2018-04-22 07:30] LABS: Rouleau Slight
[2018-04-22] MEDS ORDERED: SODIUM CHLORIDE 0.9% 1,000 ML IV PRN ×2 (08:22→08:39)
[2018-04-22] MEDS ORDERED: MEROPENEM 500 MG in SODIUM CHLORIDE 0.9% 100 ML IV SCH ×2 (08:40→10:30)
[2018-04-22] MEDS: GRANISETRON 1 MG/1 ML VIAL IV SCH (09:38)
[2018-04-22] MEDS: POTASSIUM CHLORIDE 20 MEQ TABLET PO SCH ×2 (09:38→20:37)
[2018-04-22] MEDS: DOCUSATE/SENNA 50-8.6 MG TABLET PO SCH ×2 (09:38→20:37)
[2018-04-22] MEDS: PANTOPRAZOLE 40 MG VIAL IV SCH ×2 (09:39→20:40)
[2018-04-22] MEDS: FILGRASTIM-SNDZ 300 MCG/0.5 ML SYRINGE SUBCUT SCH ×2 (09:39→15:35)
[2018-04-22] MEDS: MEROPENEM 500 MG in SODIUM CHLORIDE 0.9% 100 ML IV SCH ×2 (15:36→23:14)
[2018-04-23] MEDS: DEXTROSE 5% NACL 0.45% 1,000 ML IV SCH ×3 (05:37→17:59)
[2018-04-23 05:40] LABS: Basophils % 0.5 % (0.0-0.8); Eosinophils # 0.1 10*3/uL (0.0-0.87); Eosinophils % 2.1 % (0.00-10.9); Hematocrit 25.2 VOL% (35.7-47.0); Immature Granulocytes % 0.5 %; Immature Granulocytes Absolute 0.02 #; Lymphocytes # 0.2 10*3/uL (1.4-4.0); Lymphocytes % 3.7 % (21.3-54.2); Mean Corpuscular HGB Conc 31.7 GM/DL (32-36); Mean Corpuscular Hemoglobin 30 PG (27-34); Mean Corpuscular Volume 93.3 FL (87-102); Monocytes # 0.1 10*3/uL (0.11-0.8); Monocytes % 2.8 % (1.7-12.7); Neutrophils # 3.9 10*3/uL (1.4-7.4); Neutrophils % 90.4 % (38.7-73.9); Red Cell Distribution Width 19.3 % (9.3-17.3); White Blood Count 4.3 T/CUMM (4-12)
[2018-04-23 05:49] LABS: Platelet Count 18 T/CUMM (130-400)
[2018-04-23] MEDS: METOPROLOL TARTRATE 5 MG/5 ML VIAL IV SCH ×3 (05:57→18:00)
[2018-04-23 06:06] LABS: Band Neutrophils 12 % (0-10); Lymphocytes 1 % (20-55); Segmented Neutrophils 86 % (50-85); Total Cells Counted 100
[2018-04-23 06:07] LABS: Hypochromasia 1+; Microcytosis 1+; Platelet Estimate Decreased; Rouleau Slight
[2018-04-23 06:26] LABS: Albumin 0.9 G/DL (3.4-5.0); Bilirubin,Total 0.9 MG/DL (0.2-1.0); Calcium 6.4 MG/DL (8.5-10.1); Osmolality,Calculated 269.5 MOS/KG (273-304); Potassium 5.3 MMOL/L (3.5-5.1); Total Protein 7.2 G/DL (6.4-8.3)
[2018-04-23] MEDS: DOCUSATE/SENNA 50-8.6 MG TABLET PO SCH ×2 (09:30→21:20)
[2018-04-23] MEDS: PANTOPRAZOLE 40 MG VIAL IV SCH ×2 (09:30→21:17)
[2018-04-23] MEDS: FILGRASTIM-SNDZ 300 MCG/0.5 ML SYRINGE SUBCUT SCH ×2 (09:30→09:43)
[2018-04-23] MEDS: POTASSIUM CHLORIDE 20 MEQ TABLET PO SCH (09:31)
[2018-04-23] MEDS: GRANISETRON 1 MG/1 ML VIAL IV SCH (09:32)
[2018-04-23] MEDS: MEROPENEM 500 MG in SODIUM CHLORIDE 0.9% 100 ML IV SCH (10:40)
[2018-04-24] MEDS: MEROPENEM 500 MG in SODIUM CHLORIDE 0.9% 100 ML IV SCH ×2 (00:13→13:28)
[2018-04-24] MEDS: METOPROLOL TARTRATE 5 MG/5 ML VIAL IV SCH ×4 (00:15→18:05)
[2018-04-24] MEDS: ONDANSETRON 4 MG/2 ML VIAL IV PRN (02:29)
[2018-04-24] MEDS: MEPERIDINE 25 MG/1 ML VIAL IV PRN ×2 (02:40→19:09)
[2018-04-24] MEDS: DEXTROSE 5% NACL 0.45% 1,000 ML IV SCH ×6 (04:36→23:00)
[2018-04-24 05:23] LABS: Eosinophils % 0.7 % (0.00-10.9); Immature Granulocytes % 1.7 %; Immature Granulocytes Absolute 0.07 #; Lymphocytes # 0.3 10*3/uL (1.4-4.0); Mean Corpuscular HGB Conc 31.4 GM/DL (32-36); Mean Corpuscular Hemoglobin 30 PG (27-34); Mean Platelet Volume 13.1 FL (9.6-12.0); Monocytes # 0.1 10*3/uL (0.11-0.8); Monocytes % 2.2 % (1.7-12.7); Neutrophils # 3.7 10*3/uL (1.4-7.4); Neutrophils % 88.4 % (38.7-73.9); Red Blood Count 2.34 MC/CUMM (3.8-5.5); Red Cell Distribution Width 19.5 % (9.3-17.3); White Blood Count 4.1 T/CUMM (4-12)
[2018-04-24 05:37] LABS: Platelet Count 7 T/CUMM (130-400)
[2018-04-24 05:38] LABS: Hemoglobin 6.9 GM/DL (12.0-16.0)
[2018-04-24 05:53] LABS: Band Neutrophils 5 % (0-10); Eosinophils 1 % (0-10); Hypochromasia Slight; Lymphocytes 2 % (20-55); Platelet Estimate Decreased; Rouleau Few; Segmented Neutrophils 89 % (50-85); Total Cells Counted 100
[2018-04-24 05:54] LABS: Microcytosis Slight
[2018-04-24 05:57] LABS: Albumin 0.8 G/DL (3.4-5.0); Bilirubin,Total 1.2 MG/DL (0.2-1.0); Calcium 6.1 MG/DL (8.5-10.1); Osmolality,Calculated 268.7 MOS/KG (273-304); Potassium 5.6 MMOL/L (3.5-5.1)
[2018-04-24] MEDS ORDERED: DEXAMETHASONE 10 MG/1 ML VIAL IV ONE (07:46)
[2018-04-24] MEDS ORDERED: SODIUM CHLORIDE 0.9% 1,000 ML IV PRN ×2 (07:46→17:21)
[2018-04-24] MEDS ORDERED: DEXAMETHASONE INJ 40 MG in SODIUM CHLORIDE 0.9% 50 ML IV ONE (08:00)
[2018-04-24 08:30] LABS: Amorphous Crystals,Urine Few /HPF (Few); Apearance,Urine CLOUDY (Clear); Bacteria,Urine Few /HPF (Few); Bilirubin,Urine Negative (Negative); Blood, Urine Small mg/dL (Negative); Glucose,Urine (UA) 50 mg/dL (Negative); Ketones,Urine 5 mg/dL (Negative); Nitrite,Urine Negative (Negative); Protein,Urine 100 MG/DL; RBC,Urine 16 /HPF (0-4); Urine Color Amber (Yellow); Urine Specific Gravity 1.014 (1.001-1.035); WBC,Urine 12 /HPF (0-6)
[2018-04-24] MEDS ORDERED: DEXTROSE 5% NACL 0.45% 1,000 ML IV SCH (09:00)
[2018-04-24] MEDS ORDERED: SODIUM BICARBONATE 50 MEQ/50 ML SYRINGE IV ONE (09:36)
[2018-04-24] MEDS: FILGRASTIM-SNDZ 300 MCG/0.5 ML SYRINGE SUBCUT SCH ×2 (09:56→10:16)
[2018-04-24] MEDS: DOCUSATE/SENNA 50-8.6 MG TABLET PO SCH ×2 (09:57→20:26)
[2018-04-24] MEDS: PANTOPRAZOLE 40 MG VIAL IV SCH ×2 (09:57→20:25)
[2018-04-24] MEDS: GRANISETRON 1 MG/1 ML VIAL IV SCH (10:00)
[2018-04-24] MEDS: SODIUM BICARB INJ 50 MEQ in DEXTROSE 5% NACL 0.45% 1,000 ML IV SCH ×2 (13:29→22:58)
[2018-04-25] MEDS: MEROPENEM 500 MG in SODIUM CHLORIDE 0.9% 100 ML IV SCH ×3 (01:24→23:28)
[2018-04-25] MEDS: METOPROLOL TARTRATE 5 MG/5 ML VIAL IV SCH ×4 (02:03→18:42)
[2018-04-25] MEDS: SODIUM BICARB INJ 50 MEQ in DEXTROSE 5% NACL 0.45% 1,000 ML IV SCH ×3 (02:04→14:44)
[2018-04-25 08:02] LABS: Basophils % 0.7 % (0.0-0.8); Hematocrit 30.8 VOL% (35.7-47.0); Immature Granulocytes % 0.9 %; Immature Granulocytes Absolute 0.05 #; Lymphocytes # 0.3 10*3/uL (1.4-4.0); Mean Corpuscular HGB Conc 32.5 GM/DL (32-36); Mean Corpuscular Hemoglobin 27 PG (27-34); Mean Platelet Volume 11.4 FL (9.6-12.0); Monocytes # 0.1 10*3/uL (0.11-0.8); Monocytes % 2.4 % (1.7-12.7); Neutrophils # 4.9 10*3/uL (1.4-7.4); Red Blood Count 3.71 MC/CUMM (3.8-5.5); White Blood Count 5.4 T/CUMM (4-12)
[2018-04-25 08:17] LABS: Platelet Count 26 T/CUMM (130-400)
[2018-04-25 08:28] LABS: Albumin 0.9 G/DL (3.4-5.0); Bilirubin,Total 1.1 MG/DL (0.2-1.0); Calcium 6.4 MG/DL (8.5-10.1); Osmolality,Calculated 270.8 MOS/KG (273-304); Total Protein 7.2 G/DL (6.4-8.3)
[2018-04-25 08:34] LABS: Band Neutrophils 11 % (0-10); Segmented Neutrophils 85 % (50-85); Total Cells Counted 100
[2018-04-25 08:35] LABS: Toxic Granulation 1+
[2018-04-25 08:36] LABS: Anisocytosis 1+
[2018-04-25 08:37] LABS: Burr Cells Few
[2018-04-25 08:38] LABS: Microcytosis 1+
[2018-04-25 08:39] LABS: Tear Drop Cells Slight
[2018-04-25 08:41] LABS: Platelet Estimate Decreased
[2018-04-25 08:50] LABS: Hypochromasia Slight; Rouleau Slight
[2018-04-25] MEDS: FILGRASTIM-SNDZ 300 MCG/0.5 ML SYRINGE SUBCUT SCH ×2 (09:34→09:53)
[2018-04-25] MEDS: PANTOPRAZOLE 40 MG VIAL IV SCH ×2 (09:34→20:59)
[2018-04-25] MEDS: GRANISETRON 1 MG/1 ML VIAL IV SCH (09:35)
[2018-04-25] MEDS: DOCUSATE/SENNA 50-8.6 MG TABLET PO SCH ×2 (09:35→20:58)
[2018-04-25] MEDS ORDERED: CALCIUM CARBONATE CHEW 500 MG TABLET PO PRN (14:12)
[2018-04-25] MEDS: DEXTROSE 5% NACL 0.45% 1,000 ML IV SCH ×2 (17:45→17:47)
[2018-04-25] MEDS: SIMETHICONE CHEW 80 MG TABLET PO PRN ×2 (17:51→20:58)
[2018-04-26] MEDS: METOPROLOL TARTRATE 5 MG/5 ML VIAL IV SCH ×4 (00:04→18:31)
[2018-04-26 05:17] LABS: Basophils % 0.4 % (0.0-0.8); Eosinophils % 0.6 % (0.00-10.9); Hematocrit 31.3 VOL% (35.7-47.0); Hemoglobin 10.1 GM/DL (12.0-16.0); Immature Granulocytes % 0.4 %; Immature Granulocytes Absolute 0.02 #; Lymphocytes # 0.3 10*3/uL (1.4-4.0); Lymphocytes % 4.9 % (21.3-54.2); Mean Corpuscular HGB Conc 32.3 GM/DL (32-36); Mean Corpuscular Hemoglobin 27 PG (27-34); Mean Corpuscular Volume 82.4 FL (87-102); Monocytes # 0.1 10*3/uL (0.11-0.8); Monocytes % 2.7 % (1.7-12.7); Neutrophils # 4.7 10*3/uL (1.4-7.4); Red Cell Distribution Width 23.9 % (9.3-17.3); White Blood Count 5.1 T/CUMM (4-12)
[2018-04-26 05:51] LABS: Platelet Count 7 T/CUMM (130-400)
[2018-04-26 05:57] LABS: Band Neutrophils 8 % (0-10); Lymphocytes 3 % (20-55); Platelet Estimate Decreased; Segmented Neutrophils 87 % (50-85); Total Cells Counted 100
[2018-04-26 05:58] LABS: Hypochromasia Slight; Microcytosis 1+; Rouleau Slight
[2018-04-26] MEDS ORDERED: MEPERIDINE 50 MG/1 ML VIAL ONE (06:26)
[2018-04-26] MEDS: MORPHINE 4 MG/1 ML VIAL IV PRN ×4 (10:11→21:42)
[2018-04-26] MEDS: GRANISETRON 1 MG/1 ML VIAL IV SCH (10:14)
[2018-04-26] MEDS: PANTOPRAZOLE 40 MG VIAL IV SCH ×2 (10:14→20:01)
[2018-04-26] MEDS: FILGRASTIM-SNDZ 300 MCG/0.5 ML SYRINGE SUBCUT SCH ×2 (10:15→10:19)
[2018-04-26] MEDS: DOCUSATE/SENNA 50-8.6 MG TABLET PO SCH (10:15)
[2018-04-26] MEDS: LORazepam 2 MG/1 ML VIAL IV PRN ×3 (12:33→23:51)
[2018-04-26] MEDS: SODIUM BICARB INJ 50 MEQ in DEXTROSE 5% NACL 0.45% 1,000 ML IV SCH ×2 (15:11→16:31)
[2018-04-26] MEDS: MEROPENEM 500 MG in SODIUM CHLORIDE 0.9% 100 ML IV SCH ×2 (16:32→23:00)
[2018-04-27] MEDS: DOCUSATE/SENNA 50-8.6 MG TABLET PO SCH ×3 (02:25→23:32)
[2018-04-27] MEDS: METOPROLOL TARTRATE 5 MG/5 ML VIAL IV SCH ×3 (02:25→18:58)
[2018-04-27] MEDS: MORPHINE 4 MG/1 ML VIAL IV PRN ×7 (02:26→21:28)
[2018-04-27] MEDS: LORazepam 2 MG/1 ML VIAL IV PRN ×3 (04:39→23:35)
[2018-04-27 05:17] LABS: Basophils % 0.3 % (0.0-0.8); Eosinophils % 0.5 % (0.00-10.9); Hematocrit 22.5 VOL% (35.7-47.0); Hemoglobin 7.3 GM/DL (12.0-16.0); Immature Granulocytes % 0.5 %; Immature Granulocytes Absolute 0.02 #; Lymphocytes # 0.1 10*3/uL (1.4-4.0); Lymphocytes % 3.5 % (21.3-54.2); Mean Corpuscular HGB Conc 32.4 GM/DL (32-36); Mean Corpuscular Hemoglobin 27 PG (27-34); Mean Corpuscular Volume 81.8 FL (87-102); Monocytes # 0.1 10*3/uL (0.11-0.8); Neutrophils # 3.7 10*3/uL (1.4-7.4); Neutrophils % 92.2 % (38.7-73.9); Red Blood Count 2.75 MC/CUMM (3.8-5.5); Red Cell Distribution Width 23.9 % (9.3-17.3)
[2018-04-27 05:33] LABS: Platelet Count 3 T/CUMM (130-400)
[2018-04-27 05:51] LABS: Band Neutrophils 5 % (0-10); Eosinophils 1 % (0-10); Lymphocytes 1 % (20-55); Segmented Neutrophils 92 % (50-85); Total Cells Counted 100
[2018-04-27 05:52] LABS: Hypochromasia 1+; Microcytosis 1+; Platelet Estimate Decreased; Rouleau Few
[2018-04-27] MEDS: PANTOPRAZOLE 40 MG VIAL IV SCH ×2 (12:46→21:32)
[2018-04-27] MEDS: GRANISETRON 1 MG/1 ML VIAL IV SCH (12:46)
[2018-04-27] MEDS: FILGRASTIM-SNDZ 300 MCG/0.5 ML SYRINGE SUBCUT SCH ×2 (12:47)
[2018-04-27] MEDS: MEROPENEM 500 MG in SODIUM CHLORIDE 0.9% 100 ML IV SCH (12:47)
[2018-04-27] MEDS: DEXTROSE 5% NACL 0.45% 1,000 ML IV SCH (18:58)
[2018-04-28] MEDS: METOPROLOL TARTRATE 5 MG/5 ML VIAL IV SCH ×2 (02:46→05:35)
[2018-04-28] MEDS: MEROPENEM 500 MG in SODIUM CHLORIDE 0.9% 100 ML IV SCH (02:49)
[2018-04-28 04:05] VITALS: BP 91/57
[2018-04-28] MEDS: LORazepam 2 MG/1 ML VIAL IV PRN (05:36)
[2018-04-28] MEDS: SODIUM BICARB INJ 50 MEQ in DEXTROSE 5% NACL 0.45% 1,000 ML IV SCH ×2 (07:37→07:38)
== END 2018-04-28 08:43 | disposition expired | DRG 444 ==
LOC: N.ED 17:16 → SUATTDRO 21:04 → N.EDINP 21:04 → N.4E 21:38
PROVIDERS: ADMIT Internal Medicine; ATTEND Internal Medicine